=== PATIENT | female | born 1985 | race Native Hawaiian/Other Pacific Islander ===

== ENCOUNTER 2016-07-19 17:06 | Emergency (ER) | payer OTHER ==
[~2016-07-19] VITALS: Ht 157.5 cm; Wt 69.4 kg
[2016-07-19] MEDS ORDERED: PROZAC10 MG PO (17:58)
[2016-07-19 19:46] VITALS: BP 143/81; TEMP 98.7
== END 2016-07-19 19:54 | disposition home or self-care (01) ==
LOC: ED 17:06
DX: S50.02XA Contusion of left elbow, initial encounter (principal); W22.8XXA Striking against or struck by other objects, initial encounter; Y92.098 Other place in other non-institutional residence as the place of occurrence of the external cause
CPT/HCPCS: 99283

== ENCOUNTER 2016-07-22 14:29 | Inpatient (IN) | payer OTHER ==
[~2016-07-22] VITALS: Ht 157.5 cm; Wt 77.1 kg
[~2016-07-22 14:29] MED LIST: PROZAC10 MG PO
[2016-07-22 14:38] VITALS: BP 148/81; TEMP 98.3
[2016-07-22 15:23] LABS: PLATELET COUNT 362 K/uL (152-353)
[2016-07-22 15:30] LABS: POTASSIUM 4.3 mmol/L (3.6-5.2); SODIUM 136 mmol/L (136-145)
[2016-07-22 16:32] LABS: PARTIAL THROMBOPLASTIN TIME 25.9 SECONDS (24.5-33.6)
[2016-07-23] VITALS (7 sets, daily range): BP systolic 95–133; BP diastolic 46–86; TEMP 97.4–98.7; Ht 157.5 cm; Wt 77.1 kg
[2016-07-23] MEDS ORDERED: FLUOXETINE40 MG PO (08:22)
[2016-07-23] MEDS ORDERED: INDERAL LA60 MG PO (08:23)
[2016-07-23] MEDS ORDERED: ADDERALL20 MG OR (08:24)
[2016-07-23 09:24] LABS: PLATELET COUNT 416 K/uL (152-353)
[2016-07-23 10:46] LABS: POTASSIUM 4.2 mmol/L (3.6-5.2); SODIUM 134 mmol/L (136-145)
[2016-07-24] VITALS: BP 126/56; TEMP 98.5
[2016-07-24 04:00] VITALS: BP 102/55; TEMP 98.8
[2016-07-24 04:48] LABS: PLATELET COUNT 324 K/uL (152-353)
[2016-07-24 04:51] LABS: POTASSIUM 4.4 mmol/L (3.6-5.2); SODIUM 135 mmol/L (136-145)
[2016-07-24 08:00] VITALS: BP 132/75; TEMP 98.8
[2016-07-24 12:00] VITALS: BP 121/72; TEMP 98.7
== END 2016-07-24 12:00 | disposition home or self-care (01) | DRG 394 ==
LOC: ED 14:29 → MED/SURG 18:34
PROVIDERS: ADMIT Emergency Medicine
DX: K63.89 Other specified diseases of intestine (principal); K51.80 Other ulcerative colitis without complications
CPT/HCPCS: 36415; 80053; 80307; 81000; 81025; 83735; 85027; 85610; 85651; 85730; 86140; 87045; 87205; 87328; 87329; 87425; 87493; 87798; 87899; 96361; 96365; 96366; 96375; 96376; 99284; G0479; J0500; J1170; J1885; J1956; J2175; J2405; J2920; J3490; Q9963